=== PATIENT | female | born 1995 ===

== ENCOUNTER 2023-11-09 05:29 | Day surgery (SDC) | payer OTHER ==
[2023-10-31 10:49] LABS: PH,URINE 6.5 (5.0-8.0); URINE APPEARANCE Clear; URINE BILIRRUBIN Negative (NEGATIVE); URINE BLOOD Negative; URINE COLOR Yellow; URINE GLUCOSE Negative (NEGATIVE); URINE LEUKOCYTE Negative; URINE NITRATE Negative; URINE PROTEIN Negative (NEGATIVE); URINE UROBILINOGEN 0.2 E.U./dl
[2023-10-31 10:50] LABS: HEMATOCRIT 40.2 % (36.0-45.00); HEMOGLOBIN 13.9 g/dL (12.0-15.00); MEAN CELL VOLUME 94.4 fL (80.00-100.00); MEAN CORPUSCULAR HEMOGLOBIN 32.7 pg (27.00-32.0); MEAN CORPUSCULAR HGB CONC 34.7 g/dl (32.0-36.0); PLATELET COUNT 218 K/uL (150-450); RED BLOOD COUNT 4.26 M/uL (4.00-6.00); RED CELL DISTRIBUTION WIDTH 12.1 % (11.5-14.5)
[2023-10-31 10:54] LABS: URINE BACTERIA 408.2 uL (0.0-1933); URINE EPITHELIAL CELLS 23.3 uL (0.0-38.8); URINE RBC 5.7 uL (0.0-20.8); URINE WBC 7.8 uL (0.0-23.2)
[2023-10-31 11:25] LABS: CALCIUM 9.4 mg/dL (8.5-10.1); CREATININE SERUM 0.64 mg/dL (0.55-1.02); GFR 112.17; POTASSIUM 3.8 mEq/L (3.5-5.1)
[2023-10-31 11:28] LABS: INR 1.03; PARTIAL THROMBOPLASTIN TIME 26.9 SECONDS (22.0-34.0); PROTHROMBIN TIME 10.8 SECONDS (9.0-11.5)
[2023-11-09] MEDS ORDERED: MIRALAX17 GM PO (08:55)
[2023-11-09] MEDS ORDERED: KETO10TA2 PO (08:55)
[2023-11-09] MEDS ORDERED: TYLENOL ARTHRI650 MG PO (08:55)
[2023-11-09] MEDS ORDERED: TRAMADOL HCL50 MG PO (08:55)
== END 2023-11-09 11:40 | disposition home or self-care (01) ==
LOC: CIR.AMB 05:29
PROVIDERS: ATTEND Surgery
DX: K81.1 Chronic cholecystitis (principal); K82.8 Other specified diseases of gallbladder